=== PATIENT | female | born 1970 | race Caucasian/White ===

== ENCOUNTER → 2021-03-28 | Outpatient (CLI) | payer BC ==
[~2021-03-28] MED LIST: BACTRIM DS 8001 TA1 PO; NAPROSYN500 MG PO
== END | disposition home or self-care (01) ==
LOC: US 03-07 15:30
PROVIDERS: ATTEND Obstetrics & Gynecology
DX: N89.8 Other specified noninflammatory disorders of vagina (principal); N93.9 Abnormal uterine and vaginal bleeding, unspecified

== ENCOUNTER 2024-05-14 21:15 | Emergency (ER) | payer SELFPAY ==
[~2024-05-14] VITALS: Ht 162.5 cm; Wt 71.2 kg
[2024-05-14 22:21] LABS: BASO # 0.1 10*3/uL (0.0-0.1); BASO % 0.7 % (0.0-1.0); EOS # 0.1 10*3/uL (0.0-0.4); EOS % 1.2 % (1.0-4.0); HEMATOCRIT 41.8 % (37.0-47.0); LYMPH # 2.2 10*3/uL (1.3-4.4); MEAN CELL VOLUME 93.1 fl (81.0-99.0); MEAN CORPUSCULAR HGB 29.8 pg (27.0-31.0); MEAN CORPUSCULAR HGB CONC 32.1 g/dl (33.0-37.0); MEAN PLATELET VOLUME 9.4 fl (9.6-12.3); MONO # 0.7 10*3/uL (0.1-1.0); MONO % 7.2 % (3.0-9.0); NEUT # 6.4 10*3/uL (2.3-7.9); NEUT % 67.5 % (47.0-73.0); PLATELET COUNT AUTOMATED 296 10*3/uL (130-400); RED BLOOD COUNT 4.49 10*6/uL (4.10-5.10); RED CELL DISTRI WIDTH 13.6 % (0-14.5); WHITE BLOOD COUNT 9.5 10*3/uL (4.8-10.8)
[2024-05-14 22:27] LABS: BILIRUBIN Negative (Negative); BLOOD 1+ (Negative); CLARITY Clear (Clear); COLOR Yellow (Yellow); GLUCOSE Negative (Negative); KETONE Trace (Negative); LEUKO ESTERASE 1+ (Negative); NITRITE Negative (Negative); PH 6.5 (4.5-8.0); SPECIFIC GRAVITY 1.025 (1.001-1.030)
[2024-05-14 22:35] LABS: BACTERIA 1+; MUCOUS 1+; RBC 21-30 rbc/hpf (0-2); WBC 16-20 wbc/hpf (0-5)
[2024-05-14 22:41] LABS: ALKALINE PHOSPHATASE 113 U/L (46-116); BUN 11 mg/dl (9-23); CHLORIDE 105 mmol/L (98-107); POTASSIUM 3.6 mmol/L (3.4-5.1); SGPT/ALT 30 U/L (5-49); TOTAL PROTEIN 7.3 gm/dL (6.0-8.0)
[2024-05-15] MEDS ORDERED: Acetaminophen/Hydrocodone 5 MG/325 MG TABLET PO ONE (00:25)
[2024-05-15] MEDS ORDERED: TRAMADOL HCL50 MG PO (01:10)
== END 2024-05-15 01:13 | disposition home or self-care (01) ==
LOC: ED 21:15
PROVIDERS: Emergency Medicine
DX: S30.1XXA Contusion of abdominal wall, initial encounter (principal); S30.0XXA Contusion of lower back and pelvis, initial encounter; S39.81XA Other specified injuries of abdomen, initial encounter; W23.0XXA Caught, crushed, jammed, or pinched between moving objects, initial encounter; Y93.89 Activity, other specified; Y92.009 Unspecified place in unspecified non-institutional (private) residence as the place of occurrence of the external cause; Y99.8 Other external cause status

== ENCOUNTER 2025-06-19 16:36 | Inpatient (IN) | payer OTHER ==
[~2025-06-19] VITALS: Ht 162.6 cm; Wt 73.1 kg
[~2025-06-19 16:36] MED LIST changes: +TRAMADOL HCL50 MG PO
[2025-06-19 16:53] VITALS: BP 121/47
[2025-06-19] MEDS ORDERED: BISACODYL 10 MG SUPP R PRN (18:40)
[2025-06-19] MEDS ORDERED: BISACODYL 5 MG TAB PO PRN (18:40)
[2025-06-19] MEDS ORDERED: TEMAZEPAM 15 MG CAP PO PRN (18:40)
[2025-06-19] MEDS ORDERED: ACETAMINOPHEN 325 MG TAB PO PRN (18:40)
[2025-06-19] MEDS ORDERED: Acetaminophen/Hydrocodone 5 MG/325 MG TABLET PO PRN (18:40)
[2025-06-19] MEDS ORDERED: Ondansetron Hydrochloride 4 MG/2 ML VIAL IV PRN (18:40)
[2025-06-19] MEDS ORDERED: ACETAMINOPHEN 650 MG SUPP R PRN (18:40)
[2025-06-19 19:03] LABS: BASO # 0.1 10*3/uL (0.0-0.1); BASO % 0.6 % (0.0-1.0); EOS # 0.1 10*3/uL (0.0-0.4); EOS % 1.6 % (1.0-4.0); MEAN CELL VOLUME 92.2 fl (81.0-99.0); MEAN CORPUSCULAR HGB 29.0 pg (27.0-31.0); MEAN PLATELET VOLUME 9.2 fl (9.6-12.3); MONO # 0.8 10*3/uL (0.1-1.0); MONO % 9.6 % (3.0-9.0); NEUT # 5.7 10*3/uL (2.3-7.9); NEUT % 71.7 % (47.0-73.0); NUCLEATED RED BLOOD CELL 0.0 % (0.0-0.0); NUCLEATED RED BLOOD CELL 0.0 10*3/uL (0.0-0.0); PLATELET COUNT AUTOMATED 303 10*3/uL (130-400); RED CELL DISTRI WIDTH 14.0 % (0-14.5)
[2025-06-19] MEDS ORDERED: SODIUM CHLORIDE 0.9% 1,000 ML IV SCH (19:05)
[2025-06-19 19:23] LABS: ACT PARTIAL THROMBO TIME 27.2 SECONDS (20.0-32.1)
[2025-06-19 19:26] LABS: BUN 10 mg/dl (9-23); LDL CHOLESTEROL 157 mg/dL (9-159); SGPT/ALT 95 U/L (5-49)
[2025-06-19 19:29] LABS: FREE T4 1.01 ng/dl (0.89-1.76)
[2025-06-19 20:12] LABS: VITAMIN D, 25-HYDROXY 23.5 ng/mL (30-100)
[2025-06-19 20:19] VITALS: BP 128/71
[2025-06-19] MEDS ORDERED: MAG-OXIDE200 MG PO (20:48)
[2025-06-19 21:10] VITALS: BP 148/64
[2025-06-20] VITALS: BP 119/61
[2025-06-20 06:17] LABS: BASO # 0.1 10*3/uL (0.0-0.1); BASO % 0.7 % (0.0-1.0); EOS # 0.4 10*3/uL (0.0-0.4); EOS % 5.1 % (1.0-4.0); MEAN CELL VOLUME 90.8 fl (81.0-99.0); MEAN CORPUSCULAR HGB 29.1 pg (27.0-31.0); MEAN PLATELET VOLUME 9.6 fl (9.6-12.3); MONO # 0.7 10*3/uL (0.1-1.0); MONO % 9.8 % (3.0-9.0); NEUT # 3.7 10*3/uL (2.3-7.9); NEUT % 53.9 % (47.0-73.0); NUCLEATED RED BLOOD CELL 0.0 % (0.0-0.0); NUCLEATED RED BLOOD CELL 0.0 10*3/uL (0.0-0.0); PLATELET COUNT AUTOMATED 280 10*3/uL (130-400); RED CELL DISTRI WIDTH 14.2 % (0-14.5)
[2025-06-20 06:54] LABS: BUN 13 mg/dl (9-23)
[2025-06-20 08:00] VITALS: BP 128/72
[2025-06-20 12:00] VITALS: BP 122/56
== END 2025-06-20 18:29 | disposition home or self-care (01) | DRG 342 ==
LOC: ED 16:36 → EDHOLD 18:13 → 4E 20:16
PROVIDERS: ADMIT Internal Medicine; ATTEND Internal Medicine
DX: S82.64XA Nondisplaced fracture of lateral malleolus of right fibula, initial encounter for closed fracture (principal); S82.65XA Nondisplaced fracture of lateral malleolus of left fibula, initial encounter for closed fracture; K21.9 Gastro-esophageal reflux disease without esophagitis; E78.00 Pure hypercholesterolemia, unspecified; R74.01 Elevation of levels of liver transaminase levels; R73.9 Hyperglycemia, unspecified; X58.XXXA Exposure to other specified factors, initial encounter; Z91.040 Latex allergy status; Y93.89 Activity, other specified; Y92.89 Other specified places as the place of occurrence of the external cause; Y99.8 Other external cause status; Z80.9 Family history of malignant neoplasm, unspecified

== ENCOUNTER → 2025-06-30 | Outpatient (CLI) | payer OTHER ==
[~2025-06-30] MED LIST changes: +MAG-OXIDE200 MG PO
== END | disposition home or self-care (01) ==
LOC: ORTHO 03:35
PROVIDERS: ATTEND Orthopaedic Surgery
DX: S82.62XA Displaced fracture of lateral malleolus of left fibula, initial encounter for closed fracture (principal); S82.64XA Nondisplaced fracture of lateral malleolus of right fibula, initial encounter for closed fracture; S82.491A Other fracture of shaft of right fibula, initial encounter for closed fracture; X58.XXXA Exposure to other specified factors, initial encounter; Y93.89 Activity, other specified; Y92.89 Other specified places as the place of occurrence of the external cause; Y99.8 Other external cause status

== ENCOUNTER → 2025-08-04 | Outpatient (CLI) | payer OTHER | END | disposition home or self-care (01) | LOC: ORTHO 08-03 10:18 | PROVIDERS: ATTEND Orthopaedic Surgery | DX: S82.65XD Nondisplaced fracture of lateral malleolus of left fibula, subsequent encounter for closed fracture with routine healing (principal); S82.64XD Nondisplaced fracture of lateral malleolus of right fibula, subsequent encounter for closed fracture with routine healing; X58.XXXA Exposure to other specified factors, initial encounter ==